=== PATIENT | female | born 1965 | race Caucasian/White ===

== ENCOUNTER 2018-08-23 17:30 | Emergency (ER) | payer BC ==
[~2018-08-23] VITALS: Ht 162.6 cm; Wt 75.0 kg
[~2018-08-23 17:30] MED LIST: ALBUTEROL0.83 MG/ML IH; ALLEGRA 180MG180 MG PO; DESYREL 100MG100 MG PO; DUO-KAPS1 CAP PO; EFFEXOR-XR150 MG PO; ESTRACE2 MG PO; KLONOPIN WAFER0.5 MG PO; LAMICTAL XR300 MG PO; MOBIC15 MG PO; NICODERM C14 MG/PATC TOP; PROAIR HFA0.09 MG/AC IH; PROVENTIL0.09 MG/A1; RT ADVAIR 228 DISKUS IH; RT ADVAIR 528 DISKUS; RT ADVAIR 528 DISKUS IH; SINGULAIR 110 MG/TAB PO; TESSALON PERLE200 MG PO; TYLENOL ARTHRI650 M1 PO
[2018-08-23 17:36] VITALS: TEMP 97.6
[2018-08-23] MEDS ORDERED: PREDNISONE20 MG PO (19:41)
[2018-08-23] MEDS ORDERED: PERCOCET 325 MG1 TA2 PO (19:41)
[2018-08-23 19:47] VITALS: BP 141/71; PULSE 70
== END 2018-08-23 19:47 | disposition home or self-care (01) ==
LOC: COL.ER 17:30
DX: S22.019A Unspecified fracture of first thoracic vertebra, initial encounter for closed fracture (principal); J44.9 Chronic obstructive pulmonary disease, unspecified; I10 Essential (primary) hypertension; Z86.711 Personal history of pulmonary embolism; F17.210 Nicotine dependence, cigarettes, uncomplicated; Z98.890 Other specified postprocedural states; Z79.51 Long term (current) use of inhaled steroids
CPT/HCPCS: J1885; J7512

== ENCOUNTER → 2018-09-21 | Outpatient (CLI) | payer BC ==
[~2018-09-21] MED LIST changes: +PERCOCET 325 MG1 TA2 PO; +PREDNISONE20 MG PO
== END ==
LOC: COL.RAD 14:00
DX: M51.24 Other intervertebral disc displacement, thoracic region (principal)

== ENCOUNTER 2019-03-15 15:49 | Emergency (ER) | payer BC ==
[~2019-03-15] VITALS: Ht 160 cm; Wt 63.6 kg
[2019-03-15 15:53] VITALS: TEMP 97.1
[2019-03-15 16:48] LABS: BASO % 0.2 % (0.0-2.0); EOS # 0.1 (0.0-0.7); EOS % 0.5 % (0-4.0); GRAN # 6.8 (1.4-6.5); GRAN % 74.1 % (42.2-75.2); HEMATOCRIT 37.4 % (37.0-47.0); HEMOGLOBIN 12.7 g/dl (12.5-16.0); LYMPH # 1.8 (1.2-3.4); LYMPH % 19.3 % (20.0-51.0); MEAN CELL VOLUME 92 fl (80.0-100.0); MEAN CORPUSCULAR HEMOGLOBIN 31 pg (27.0-31.0); MEAN CORPUSCULAR HGB CONC 34 g/dl (33.0-37.0); MEAN PLATELET VOLUME 8.6 fl (7.4-10.4); MONO # 0.5 (0.1-0.6); MONO % 5.6 % (1.7-9.3); PLATELET COUNT 383 K/mm3 (130-400); RED BLOOD COUNT 4.06 M/mm3 (4.10-5.30); REDCELL DISTRIBUTION WIDTH-CV 13.2 % (11.5-14.5)
[2019-03-15 17:02] LABS: ALANINE AMINOTRANSFERASE 12 U/L (9-52); ALBUMIN 4.3 gm/dL (3.5-5.0); ALKALINE PHOSPHATASE 119 U/L (50-136); ANION GAP 10 mmol/L (7-16); AST,SGOT 24 U/L (15-37); BILIRUBIN,TOTAL 0.3 mg/dL (0.0-1.0); BLOOD UREA NITROGEN 5 mg/dL (7-17); C-REACTIVE PROTEIN 1.4 mg/dL (0.0-0.9); CALCIUM 10.2 mg/dL (8.4-10.2); CARBON DIOXIDE 26 mmol/L (22-30); CHLORIDE 98 mmol/L (98-107); GLUCOSE 110 mg/dL (74-106); POTASSIUM 3.9 mmol/L (3.4-5.0); SODIUM 134 mmol/L (137-145); TOTAL PROTEIN 7.4 gm/dL (6.4-8.2)
[2019-03-15 17:14] LABS: TROPONIN-I < 0.012 ng/mL (0.000-0.035)
[2019-03-15] MEDS ORDERED: DOXYCYCLINE HY100 MG PO (19:38)
[2019-03-15 19:47] VITALS: BP 149/91; PULSE 97
== END 2019-03-15 19:47 | disposition home or self-care (01) ==
LOC: COL.ER 15:49
PROVIDERS: Emergency Medicine
DX: J18.9 Pneumonia, unspecified organism (principal); R51 Headache; J40 Bronchitis, not specified as acute or chronic; I10 Essential (primary) hypertension; F31.9 Bipolar disorder, unspecified; R07.89 Other chest pain; F17.210 Nicotine dependence, cigarettes, uncomplicated; Z79.51 Long term (current) use of inhaled steroids
CPT/HCPCS: J0780; J1200; J1885; J7030; Q9967

== ENCOUNTER → 2019-07-17 | Outpatient (CLI) | payer BC ==
[~2019-07-17] MED LIST changes: +DOXYCYCLINE HY100 MG PO
== END ==
LOC: COL.RAD 07:49
DX: R10.10 Upper abdominal pain, unspecified (principal); Z98.890 Other specified postprocedural states
CPT/HCPCS: Q9967

== ENCOUNTER 2020-03-14 12:19 | Emergency (ER) | payer BC ==
[~2020-03-14] VITALS: Ht 160 cm; Wt 72.7 kg
[2020-03-14 13:17] LABS: COLLECTION METHOD CLEAN CATCH
[2020-03-14 13:23] LABS: PH 7 (5-8); SQUAMOUS EPITHELIAL 0-2 /hpf; URINE APPEARANCE Clear; URINE BACTERIA None Seen /hpf; URINE BILIRUBIN Negative (NEGATIVE); URINE BLOOD Negative (NEGATIVE); URINE COLOR Straw; URINE GLUCOSE Negative (NEGATIVE); URINE KETONE Negative (NEGATIVE); URINE LEUKOCYTE ESTERASE Negative (NEGATIVE); URINE NITRATE Negative (NEGATIVE); URINE PROTEIN(semi-quant) Negative (NEGATIVE); URINE UROBILINOGEN Negative (NEGATIVE)
[2020-03-14 13:37] LABS: BASO % 0.3 % (0.0-2.0); EOS # 0.1 (0.0-0.7); EOS % 1.2 % (0-4.0); GRAN # 7.2 (1.4-6.5); GRAN % 66.1 % (42.2-75.2); HEMOGLOBIN 12.1 g/dl (12.5-16.0); LYMPH # 2.8 (1.2-3.4); LYMPH % 25.6 % (20.0-51.0); MEAN CELL VOLUME 95 fl (80.0-100.0); MEAN CORPUSCULAR HEMOGLOBIN 33 pg (27.0-31.0); MEAN CORPUSCULAR HGB CONC 35 g/dl (33.0-37.0); MEAN PLATELET VOLUME 8.9 fl (7.4-10.4); MONO # 0.7 (0.1-0.6); MONO % 6.4 % (1.7-9.3); PLATELET COUNT 375 K/mm3 (130-400); RED BLOOD COUNT 3.65 M/mm3 (4.10-5.30); REDCELL DISTRIBUTION WIDTH-CV 12.2 % (11.5-14.5)
[2020-03-14 13:38] LABS: HEMATOCRIT 34.7 % (37.0-47.0)
[2020-03-14 14:05] LABS: TRICYCLIC ANTIDEPRESS URINE NEGATIVE
[2020-03-14 14:07] LABS: ALANINE AMINOTRANSFERASE 19 U/L (4-34); ALBUMIN 4.3 gm/dL (3.5-5.0); ALKALINE PHOSPHATASE 92 U/L (50-136); ANION GAP 7 mmol/L (7-16); AST,SGOT 25 U/L (15-37); BILIRUBIN,TOTAL 0.4 mg/dL (0.0-1.0); BLOOD UREA NITROGEN 7 mg/dL (7-17); CALCIUM 9.3 mg/dL (8.4-10.2); CARBON DIOXIDE 27 mmol/L (22-30); CHLORIDE 96 mmol/L (98-107); CREATININE, serum 0.57 (0.52-1.25); GLUCOSE 97 mg/dL (74-106); POTASSIUM 4.4 mmol/L (3.4-5.0); SODIUM 130 mmol/L (137-145)
[2020-03-14 14:14] LABS: ACETAMINOPHEN < 10 ug/mL (10-30); ALCOHOL(ethanol),MEDICAL < 10 mg/dL; SALICYLATE < 1.0 mg/dL
[2020-03-14 14:37] LABS: TSH w REFLEX 0.671 uIU/mL (0.465-4.680)
[2020-03-14 18:58] VITALS: TEMP 97.8
[2020-03-14] MEDS ORDERED: TRELEGY ELLIPT1 EACH IH (20:57)
[2020-03-14] MEDS ORDERED: VITAMIN D250 MCG PO (20:58)
[2020-03-14] MEDS ORDERED: CELEBREX 1100 MG/CAP PO (20:58)
[2020-03-14] MEDS ORDERED: NARCAN4 MG NS (20:59)
[2020-03-14] MEDS ORDERED: PROAIR HFA0.09 MG/AC IH (20:59)
[2020-03-14] MEDS ORDERED: ALLEGRA ODT30 MG PO (21:02)
[2020-03-14] MEDS ORDERED: ZOFRAN ODT4 MG PO (21:03)
[2020-03-14] MEDS ORDERED: SINGULAIR 110 MG/TAB PO (21:03)
[2020-03-14] MEDS ORDERED: PROTONIX 40MG T40 MG PO (21:04)
[2020-03-14] MEDS ORDERED: COZAAR100 MG PO (21:04)
[2020-03-14] MEDS ORDERED: FERROUS SU325 MG/TAB PO (21:05)
[2020-03-14] MEDS ORDERED: NORVASC 5MG5 MG/TAB PO (21:05)
[2020-03-14] MEDS ORDERED: PRENATAL (21:06)
[2020-03-14] MEDS ORDERED: DESYREL 100MG100 MG PO (21:06)
[2020-03-14] MEDS ORDERED: LAMICTAL200 MG PO (21:07)
[2020-03-14] MEDS ORDERED: ATIVAN 0.50.5 MG/TAB PO (21:07)
[2020-03-14] MEDS ORDERED: LIORESAL 1010 MG/TAB PO (21:07)
[2020-03-14] MEDS ORDERED: NORCO 325 MG-101 TAB PO (21:08)
[2020-03-14] MEDS ORDERED: NEURONTIN300 MG/CAP PO (21:08)
[2020-03-14] MEDS ORDERED: EFFEXOR-XR150 MG PO (21:08)
[2020-03-14] MEDS ORDERED: DALIRESP500 MCG PO (21:09)
[2020-03-15 12:05] VITALS: BP 140/71; PULSE 81
== END 2020-03-15 12:13 ==
LOC: COL.ER 12:19
PROVIDERS: Nurse Practitioner Primary Care
DX: F31.9 Bipolar disorder, unspecified (principal); F17.210 Nicotine dependence, cigarettes, uncomplicated
CPT/HCPCS: J1630; J1885

== ENCOUNTER 2020-07-03 10:54 | Outpatient (CLI) | payer BC ==
--- NOTE | 2020-06-28 10:29 | NUR ---
LMOM WITH INSTRUCTIONS AND TO CALL BACK
[~2020-07-03] VITALS: Ht 160 cm; Wt 75.4 kg
[2020-07-03] VITALS (7 sets, daily range): BP systolic 101–132; BP diastolic 52–75; PULSE 55–75
[~2020-07-03 10:54] MED LIST changes: +ALLEGRA ODT30 MG PO; +ATIVAN 0.50.5 MG/TAB PO; +CELEBREX 1100 MG/CAP PO; +COZAAR100 MG PO; +DALIRESP500 MCG PO; +FERROUS SU325 MG/TAB PO; +LAMICTAL200 MG PO; +LIORESAL 1010 MG/TAB PO; +NARCAN4 MG NS; +NEURONTIN300 MG/CAP PO; +NORCO 325 MG-101 TAB PO; +NORVASC 5MG5 MG/TAB PO; +PRENATAL; +PROTONIX 40MG T40 MG PO; +TRELEGY ELLIPT1 EACH IH; +VITAMIN D250 MCG PO; +ZOFRAN ODT4 MG PO
[2020-07-03] MEDS ORDERED: EFFEXOR XR75 MG/CAP PO (11:29)
[2020-07-03] MEDS ORDERED: WELLBUTRIN XL150 MG PO (11:29)
[2020-07-03] MEDS ORDERED: LATUDA40 MG PO (11:31)
[2020-07-03] MEDS ORDERED: KLONOPIN 0.5MG0.5 MG PO (11:32)
--- NOTE | 2020-07-03 12:45 | NUR ---
Denies temporal pain at this time. VSS
--- NOTE | 2020-07-03 12:52 | NUR ---
1200- report from Magy JORGENSEN. pt c/o right aquilino h/a . Gave diet Pepsi as requested.
--- NOTE | 2020-07-03 13:30 | NUR ---
Discharge instructions given. Ambulated to bathroom and back with steady gait and denies further headache pain
== END 2020-07-03 14:37 | disposition home or self-care (01) ==
LOC: COL.RAD 10:54
DX: M54.12 Radiculopathy, cervical region (principal)
CPT/HCPCS: Q9967

== ENCOUNTER 2020-12-12 17:21 | Emergency (ER) | payer BC ==
[~2020-12-12] VITALS: Ht 160 cm; Wt 62.7 kg
[~2020-12-12 17:21] MED LIST changes: +EFFEXOR XR75 MG/CAP PO; +KLONOPIN 0.5MG0.5 MG PO; +LATUDA40 MG PO; +WELLBUTRIN XL150 MG PO
[2020-12-12 17:50] VITALS: BP 153/82; TEMP 98.9
[2020-12-12 18:47] LABS: BASO % 0.5 % (0.0-2.0); EOS % 0.5 % (0-4.0); GRAN # 4.5 (1.4-6.5); GRAN % 55.4 % (42.2-75.2); HEMOGLOBIN 12.5 g/dl (12.5-16.0); LYMPH # 2.9 (1.2-3.4); LYMPH % 35.9 % (20.0-51.0); MEAN CELL VOLUME 94 fl (80.0-100.0); MEAN CORPUSCULAR HEMOGLOBIN 33 pg (27.0-31.0); MEAN CORPUSCULAR HGB CONC 35 g/dl (33.0-37.0); MEAN PLATELET VOLUME 9.2 fl (7.4-10.4); MONO # 0.6 (0.1-0.6); MONO % 7.5 % (1.7-9.3); PLATELET COUNT 314 K/mm3 (130-400); RED BLOOD COUNT 3.82 M/mm3 (4.10-5.30); REDCELL DISTRIBUTION WIDTH-CV 12.1 % (11.5-14.5)
[2020-12-12 18:48] LABS: HEMATOCRIT 35.9 % (37.0-47.0)
[2020-12-12 18:54] LABS: ALBUMIN 4.3 gm/dL (3.5-5.0); BILIRUBIN,TOTAL 0.3 mg/dL (0.0-1.0); CALCIUM 9.5 mg/dL (8.4-10.2); CREATININE, serum 0.58 (0.52-1.25); POTASSIUM 3.8 mmol/L (3.4-5.0); TOTAL PROTEIN 6.8 gm/dL (6.4-8.2)
[2020-12-12] MEDS ORDERED: PHENERGAN 25 TA25 MG PO (21:26)
[2020-12-12 21:52] VITALS: PULSE 74
== END 2020-12-12 21:54 | disposition home or self-care (01) ==
LOC: COL.ER 17:21
PROVIDERS: Physician Assistant
DX: K80.50 Calculus of bile duct without cholangitis or cholecystitis without obstruction (principal); I10 Essential (primary) hypertension; J44.9 Chronic obstructive pulmonary disease, unspecified; F31.9 Bipolar disorder, unspecified; G89.29 Other chronic pain; F17.210 Nicotine dependence, cigarettes, uncomplicated; Z87.19 Personal history of other diseases of the digestive system; Z86.711 Personal history of pulmonary embolism; Z88.4 Allergy status to anesthetic agent; Z88.8 Allergy status to other drugs, medicaments and biological substances; Z79.1 Long term (current) use of non-steroidal anti-inflammatories (NSAID)
CPT/HCPCS: J1170; J1885; J2405; J7030; Q9967

== ENCOUNTER → 2020-12-26 | Outpatient (CLI) | payer BC ==
[~2020-12-26] MED LIST changes: +PHENERGAN 25 TA25 MG PO
== END ==
LOC: COL.RAD 12-17 11:45
DX: R10.12 Left upper quadrant pain (principal); R11.2 Nausea with vomiting, unspecified
CPT/HCPCS: A9537; J2805

== ENCOUNTER 2021-02-14 10:52 | Day surgery (SDC) | payer MEDICARE ==
[2021-02-14] VITALS (10 sets, daily range): BP systolic 84–141; BP diastolic 54–90; PULSE 62–79; TEMP 97.9
[~2021-02-14] VITALS: Ht 160.1 cm; Wt 65.4 kg
[~2021-02-14 10:52] MED LIST changes: +ASPIRIN E.C. 8181 MG PO; +BYSTOLIC10 MG PO; +CALCIUM CARBON650 M2 PO; +CARDIZEM CD 24240 MG PO; +CRESTOR 10MG10 MG PO; +DEXILANT60 MG PO; +KISQALI400 MG PO; +PACERONE200 MG PO; +PROBIOTIC BLEN1 EACH PO; +SYNTHROID0.1 MG/TAB PO; +THE MEDICINE S200 M2 PO; +VITAMIND3 5000 PO; +ZYLOPRIM 300MG300 MG PO
[2021-02-14 11:38] LABS: HEMOGLOBIN 11.5 g/dl (12.5-16.0); MEAN CELL VOLUME 98 fl (80.0-100.0); MEAN CORPUSCULAR HEMOGLOBIN 33 pg (27.0-31.0); MEAN CORPUSCULAR HGB CONC 34 g/dl (33.0-37.0); MEAN PLATELET VOLUME 9.5 fl (7.4-10.4); PLATELET COUNT 266 K/mm3 (130-400); REDCELL DISTRIBUTION WIDTH-CV 12.6 % (11.5-14.5)
[2021-02-14 11:39] LABS: HEMATOCRIT 34.2 % (37.0-47.0)
[2021-02-14 11:50] LABS: PROTHROMBIN TIME 11.5 SECONDS (9.7-12.8)
[2021-02-14 11:53] LABS: PARTIAL THROMBOPLASTIN TIME 32.6 SECONDS (26.0-37.0)
[2021-02-14 12:40] LABS: CALCIUM 9.1 mg/dL (8.4-10.2); CREATININE, serum 0.48 (0.52-1.25); POTASSIUM 4.2 mmol/L (3.4-5.0)
--- NOTE | 2021-02-14 12:47 | NUR ---
SEE MERGE FOR ALL MEDICATION ADMINISTRATION TIMES, INTRA AND POST SEDATION ASSESSMENTA
--- NOTE | 2021-02-14 13:21 | NUR ---
Report from Lissa JORGENSEN. Transferred from [employer] by bed. Alert and oriented, denies pain and needs at this time. Right Tband with 15 cc air CD&I, good pulses and cap refill < 3 secs. VSS. bedside
--- NOTE | 2021-02-14 13:25 | NUR ---
First visit from the balcony worker. prayed with patient. No other needs right now.
--- NOTE | 2021-02-14 15:50 | NUR ---
15 cc air released from right Tabnd and dressing applied. INT discontinued intact. Discharge instructions given. Transferred to private car by hanna
== END 2021-02-14 16:00 | disposition home or self-care (01) ==
LOC: COL.CAR 10:52
PROVIDERS: Internal Medicine Interventional Cardiology
DX: R07.89 Other chest pain (principal); I10 Essential (primary) hypertension; J44.9 Chronic obstructive pulmonary disease, unspecified; F31.9 Bipolar disorder, unspecified; E66.9 Obesity, unspecified; I26.99 Other pulmonary embolism without acute cor pulmonale; Z88.8 Allergy status to other drugs, medicaments and biological substances; Z20.822 Contact with and (suspected) exposure to COVID-19; Z79.899 Other long term (current) drug therapy; Z79.891 Long term (current) use of opiate analgesic; Z79.82 Long term (current) use of aspirin
CPT/HCPCS: J1644; J2250; J3010; Q9967

== ENCOUNTER → 2023-12-15 | Outpatient (CLI) | payer MEDICARE ==
[2023-12-15 17:47] LABS: HEMATOCRIT 40.7 % (37.0-47.0); MEAN CELL VOLUME 96 fl (80.0-100.0); MEAN CORPUSCULAR HEMOGLOBIN 33 pg (27-31); MEAN CORPUSCULAR HGB CONC 34 g/dl (33.0-37.0); MEAN PLATELET VOLUME 9.4 fl (7.4-10.4); PLATELET COUNT 246 K/mm3 (130-400); RED BLOOD COUNT 4.26 M/mm3 (4.10-5.30); REDCELL DISTRIBUTION WIDTH-CV 12.5 % (11.5-14.5)
[2023-12-15 18:04] LABS: ALANINE AMINOTRANSFERASE 17 U/L (0-55); ALBUMIN 4.2 gm/dL (3.4-4.8); ALKALINE PHOSPHATASE 83 U/L (40-150); ANION GAP 9 mmol/L (7-16); AST,SGOT 19 U/L (5-34); BILIRUBIN,TOTAL 0.3 mg/dL (0.2-1.2); BLOOD UREA NITROGEN 6 mg/dL (10-20); CARBON DIOXIDE 25 mmol/L (23-31); CHLORIDE 102 mmol/L (98-107); CREATININE, serum 0.75 mg/dL (0.57-1.11); GLUCOSE 91 mg/dL (70-99); POTASSIUM 4.3 mmol/L (3.5-4.5); SODIUM 136 mmol/L (136-145); TOTAL PROTEIN 7.2 gm/dL (6.2-8.1)
[2023-12-15 18:14] LABS: TROPONIN-I < 0.010 ng/mL (0.00-0.033)
== END ==
LOC: COL.LAB 17:13
PROVIDERS: Nurse Practitioner
DX: R07.89 Other chest pain (principal)